=== PATIENT | male | born 1980 | race Caucasian/White ===

== ENCOUNTER 2019-01-23 15:57 | Emergency (ER) | payer OTHER ==
[~2019-01-23] VITALS: Ht 172.7 cm; Wt 76.2 kg
[2019-01-23 16:55] VITALS: BP 115/77
[2019-01-23] MEDS ORDERED: IBUPROFEN 600 MG TABLET. PO ONE (17:00)
--- NOTE | 2019-01-23 17:46 | PHYS DOC ---
Past History Past Medical History: No Pertinent History (IRINEO VILCHIS DO) Past Surgical History: No Surgical History (IRINEO VILCHIS DO) Alcohol Use: None Drug Use: None (IRINEO VILCHIS DO) Adult General Chief Complaint Chief Complaint: BACK PAIN OR INJURY HPI HPI Patient is a 38-year-old male presents complaining of low back pain. This started this morning when he was bending forward lifting weights is part of physical training. He felt a pop. Increased pain with movement. He reports some tingling in his feet bilaterally. No loss of bowel or bladder control. Patient has no history of cancer denies IV drug use. Pain is moderate to severe. Denies any previous history of back pain/back surgery denies any radiation of pain. He has taken no medicine for pain.[] (IRINEO VILCHIS DO) Review of Systems Review of Systems Constitutional: Denies fever or chills [] Eyes: Denies change in visual acuity, redness, or eye pain [] HENT: Denies nasal congestion or sore throat [] Respiratory: Denies cough or shortness of breath [] Cardiovascular: No chest pain or palpitations[] GI: Denies abdominal pain, nausea, vomiting, bloody stools or diarrhea [] : Denies dysuria or hematuria [] Musculoskeletal: History of present illness[] Integument: Denies rash or skin lesions [] Neurologic: Denies headache, focal weakness or sensory changes [] Endocrine: Denies polyuria or polydipsia [] All other systems were reviewed and found to be within normal limits, except as documented in this note. (IRINEO VILCHIS DO) Current Medications Current Medications Current Medications Medications (Trade) Dose Ordered Sig/Que Start Time Stop Time Status Last Admin Dose Admin Ibuprofen (Motrin) 600 mg 1X ONCE 01/23/19 17:00 01/23/19 17:01 DC 01/23/19 17:00 600 MG (IRINEO VILCHIS DO) Allergies Allergies Allergies Coded Allergies Type Severity Reaction Last Updated Verified nickel Allergy Severe 01/23/19 Yes (IRINEO VILCHIS DO) Physical Exam Physical Exam Constitutional: Well developed, well nourished, moderate discomfort, non-toxic appearance. [] HENT: Normocephalic, atraumatic, bilateral external ears normal, oropharynx moist, no oral exudates, nose normal. [] Eyes: PERRLA, EOMI, conjunctiva normal, no discharge. [] Neck: Normal range of motion, no tenderness, supple, no stridor. [] Cardiovascular:Heart rate regular rhythm, no murmur [] Lungs & Thorax: Bilateral breath sounds clear to auscultation [] Abdomen: Bowel sounds normal, soft, no tenderness, no masses, no pulsatile masses. [] Skin: Warm, dry, no erythema, no rash. [] Back: Spasm of bilateral lumbar paraspinal musculature. Tenderness along the left SI joint region. There is no sciatic notch tenderness on either side. Decreased active range of motion secondary to pain and spasm. Normal gait. DTRs are 2 over 4 and symmetric patella and Achilles.no CVA tenderness. [] Extremities: No tenderness, no cyanosis, no clubbing, ROM intact, no edema. [] Neurologic: Alert and oriented X 3, normal motor function, normal sensory function, no focal deficits noted. [] Psychologic: Affect normal, judgement normal, mood normal. [] (IRINEO VILCHIS DO) Current Patient Data Vital Signs Vital Signs Date Time Temp Pulse Resp B/P (MAP) Pulse Ox O2 Delivery O2 Flow Rate FiO2 01/23/19 16:55 98.4 72 18 96 Room Air (IRINEO VILCHIS DO) EKG EKG [] (IRINEO VILCHIS DO) Radiology/Procedures Radiology/Procedures [] (IRINEO VILCHIS DO) Radiology/[place] [address] IMAGING REPORT Signed PATIENT: JHON THAO ACCOUNT: [id number] : 1980 LOCATION: ER AGE: 38 SEX: M EXAM STATUS: DEP ER ORD. PHYSICIAN: IRINEO VILCHIS DO REASON: lower back injury PROCEDURE: LUMBAR SPINE 2-3V INDICATION: Low back injury COMPARISON: None. IMPRESSION: Lumbar spine: 3 views obtained. No evidence of dislocation. A definite acute fracture line is not seen. Electronically signed by: Twin Castro MD (01/23/2019 6:48 PM) [facility] DICTATED AND SIGNED BY: TWIN CASTRO MD DATE: 01/23/191847 CC: MELONY KUO; IRINEO VILCHIS DO; JORGE KAISER MD ~ (JORGE KAISER MD) Course & Med Decision Making Course & Med Decision Making Pertinent Labs and Imaging studies reviewed. (See chart for details) [] (IRINEO VILCHIS DO) Course & Med Decision Making Pt. does not want to wait for reading of X-ray- 1835 Hrs. Will issue disc and states he will follow up at [facility]. Radiology has multiple films awaiting read. Pt encouraged to return if any concerns. Especially any neuropathy or dysfunction change. Patient is ice packs as needed for next 3 days after 3 days may advance to moist heat if no re injury.. Tylenol and ibuprofen for pain. Vicoprofen for marked pain. Flexeril for muscle spasms. Return anytime. Impression: 1. Back Pain- Suspect sprain / Strain. (JORGE KAISER MD) Dragon Disclaimer Dragon Disclaimer This electronic medical record was generated, in whole or in part, using a voice recognition dictation system. (IRINEO VILCHIS DO) Departure Departure: Referrals: MELONY KUO (PCP) Scripts Ibuprofen (IBUPROFEN) 400 Mg Tablet 400 MG PO qidp PRN for PAIN, #120 TAB Prov: JORGE KAISER MD 01/23/19 Cyclobenzaprine Hcl (CYCLOBENZAPRINE HCL) 10 Mg Tablet 10 MG PO TID PRN PRN for spasms, #30 TAB Prov: JORGE KAISER MD 01/23/19 Hydrocodone/Ibuprofen (HYDROCODONE-IBUPROFEN 7.5-200 ) 1 Each Tablet 1 TAB PO PRN Q6HRS PRN for PAIN, #30 TAB 0 Refills Prov: JORGE KAISER MD 01/23/19 Discharge Summary Visit Information Final Diagnosis Problems Medical Problems: (1) Back pain Status: Acute (JORGE KAISER MD) Brief Hospital Course Allergies Allergies Coded Allergies Type Severity Reaction Last Updated Verified nickel Allergy Severe 01/23/19 Yes Vital Signs Vital Signs Date Time Temp Pulse Resp B/P (MAP) Pulse Ox O2 Delivery O2 Flow Rate FiO2 01/23/19 16:55 98.4 72 18 96 Room Air Brief Hospital Course Mr. Thao is a 38 old male who presented with low back pain, strain/sprain. (JORGE KAISER MD) Discharge Information Condition at Discharge: Stable Disposition/Orders: D/C to Home Dischare Medications Current Medications Ibuprofen (Motrin) 600 mg 1X ONCE PO Last administered on 01/23/19at 17:00; Start 01/23/19 at 17:00; Stop 01/23/19 at 17:01; Status DC Active Scripts Active Ibuprofen 400 Mg Tablet 400 Mg PO QIDP PRN Cyclobenzaprine Hcl 10 Mg Tablet 10 Mg PO TID PRN PRN Hydrocodone-Ibuprofen 7.5-200 (Hydrocodone/Ibuprofen) 1 Each Tablet 1 Tab PO PRN Q6HRS PRN (JORGE KAISER MD) Dragon Disclaimer This chart was dictated in whole or in part using Voice Recognition software in a busy, high-work load, and often noisy Emergency Department environment. It may contain unintended and wholly unrecognized errors or omissions. (JORGE KAISER MD) IRINEO VILCHIS DO Jan 23, 2019 17:46 JORGE KAISER MD Jan 23, 2019 18:38
[2019-01-23] MEDS ORDERED: HYDR-1179 PO (18:07)
[2019-01-23] MEDS ORDERED: CYCL-331 PO (18:07)
[2019-01-23] MEDS ORDERED: IBUP400T18 PO (18:08)
--- NOTE | 2019-01-23 18:51 | RAD ---
INDICATION: Low back injury COMPARISON: None. IMPRESSION: Lumbar spine: 3 views obtained. No evidence of dislocation. A definite acute fracture line is not seen. Electronically signed by: Magnus Bolden MD (01/23/2019 6:48 PM) [facility]
== END 2019-01-23 18:44 | disposition home or self-care (01) ==
LOC: ER 15:57
DX: M54.5 Low back pain (principal); Z88.8 Allergy status to other drugs, medicaments and biological substances; X50.9XXA Other and unspecified overexertion or strenuous movements or postures, initial encounter; Y93.A9 Activity, other involving cardiorespiratory exercise; Y92.89 Other specified places as the place of occurrence of the external cause; Y99.8 Other external cause status
CPT/HCPCS: 72100; 99284